=== PATIENT | male | born 1990 | race Caucasian/White ===

== ENCOUNTER 2017-01-29 09:13 | Day surgery (SDC) | payer OTHER ==
[~2017-01-29] VITALS: Ht 185.4 cm; Wt 113.4 kg
[~2017-01-29 09:13] MED LIST: CLINDAMYCIN PHOS 600 MG/ D5W 50 ML PREMIX IV ONE; LEVOFLOXACIN 500 MG/D5W 100 ML IV ONE
[2017-01-29 09:56] VITALS: O2SAT 96
[2017-01-29] MEDS ORDERED: POLYMYXIN 500,000/BACIT.10,000 UNITS in NS IRR 1 L IR ONE (12:44)
[2017-01-29] MEDS ORDERED: NS IRRIG SOLN 1000 ML IR ONE (13:02)
[2017-01-29] MEDS ORDERED: SEVOFLURANE 15 MIN GAS INH ONE (13:02)
[2017-01-29] MEDS ORDERED: fentaNYL CITRATE/PF 100 MCG/2 ML AMP IVP ONE (13:02)
[2017-01-29] MEDS ORDERED: BUPIVACAINE /PF 0.25% 30 ML VIAL INJ ONE (13:02)
[2017-01-29] MEDS ORDERED: ROCURONIUM BROMIDE 10 MG/ML (ZEMURON) IV ONE (13:02)
[2017-01-29] MEDS ORDERED: GLYCOPYRROLATE 0.2 MG/ML VIAL IJ ONE (13:02)
[2017-01-29] MEDS ORDERED: MIDAZOLAM HCL 5 MG/5 ML VIAL IVP ONE (13:02)
[2017-01-29] MEDS ORDERED: MEPERIDINE HCL/PF 100 MG/ML AMP IM ONE (13:02)
[2017-01-29] MEDS ORDERED: PROPOFOL 200MG/ 20ML VIAL (DIPRIVAN) IV ONE (13:02)
[2017-01-29] MEDS ORDERED: DEXAMETHASONE SOD PHOSPHATE 4 MG/ML VIAL IVP ONE (13:02)
[2017-01-29] MEDS ORDERED: METOCLOPRAMIDE HCL 10 MG/2 ML VIAL IVP ONE (13:02)
[2017-01-29] MEDS ORDERED: SUCCINYLCHOLINE CHLORIDE 20 MG/ML(QUELICIN) IVP ONE (13:02)
[2017-01-29] MEDS ORDERED: LR 1,000 ML IV.SOLN IV ONE (13:02)
[2017-01-29] MEDS ORDERED: KETOROLAC TROMETHAMINE 30 MG VIAL IVP ONE (13:02)
[2017-01-29] MEDS ORDERED: LR 1,000 ML IV ONE (13:55)
[2017-01-29] MEDS ORDERED: ONDANSETRON HCL 4 MG/2 ML VIAL IVP PRN ×2 (14:00)
[2017-01-29] MEDS ORDERED: NALBUPHINE HCL 10 MG/ML AMP IVP PRN (14:00)
[2017-01-29] MEDS ORDERED: DIPHENHYDRAMINE INJ 50 MG/ML VIAL IVP PRN (14:00)
[2017-01-29] MEDS ORDERED: NALOXONE HCL 0.4 MG/ML AMP (NARCAN) IVP PRN (14:00)
[2017-01-29] MEDS ORDERED: fentaNYL CITRATE/PF 100 MCG/2 ML AMP IVP PRN (14:00)
[2017-01-29] MEDS ORDERED: ePHEDrine sulfate 50 MG/ML VIAL IVP PRN (14:00)
[2017-01-29] MEDS ORDERED: D5/0.45 NS 1,000 ML IV SCH (14:18)
[2017-01-29] MEDS ORDERED: HYDROcodone/ACETAMIN 5-325 MG TAB (NORCO/ VICODIN) PO PRN ×2 (14:30)
[2017-01-29] MEDS ORDERED: HYDROmorphone 1 MG INJ. 1 MG/ML AMPUL IVP PRN (14:30)
[2017-01-29 15:58] VITALS: BP 136/81; PULSE 65; RESP 16
== END 2017-01-29 15:45 | disposition home or self-care (01) ==
LOC: SDS 09:13
PROVIDERS: ATTEND Colon & Rectal Surgery
DX: K42.0 Umbilical hernia with obstruction, without gangrene (principal); K43.6 Other and unspecified ventral hernia with obstruction, without gangrene; K21.9 Gastro-esophageal reflux disease without esophagitis; Z87.891 Personal history of nicotine dependence; G43.909 Migraine, unspecified, not intractable, without status migrainosus
CPT/HCPCS: 49561; 49568; 49587; 88302; C1781 ×2; J0330; J1100; J1885; J2175; J2250; J2704; J2765; J3010; J3490 ×3; J7120; J1956